=== PATIENT | female | born 1935 | race Caucasian/White ===

== ENCOUNTER 2016-08-29 05:22 | Inpatient (IN) | payer MEDICARE, BC ==
[2016-08-28 13:13] VITALS: BMI 28.5
[2016-08-29] VITALS (47 sets, daily range): BP systolic 85–158; BP diastolic 45–85; PULSE 70–80; RESP 11–20; Ht 179.1 cm; Wt 87.2 kg
[~2016-08-29] VITALS: Ht 179.1 cm; Wt 87.2 kg
[~2016-08-29 05:22] MED LIST: VANCOMYCIN 1 GM/NS 250 ML X1 BEFORE INCISION IVPB ONE
[2016-08-29] MEDS ORDERED: GABAPENTIN 300 MG CAP PO ONE (06:00)
[2016-08-29] MEDS ORDERED: traMADol 50 MG TAB PO ONE (06:00)
[2016-08-29] MEDS ORDERED: TRANEXAMIC ACID 1,000 MG in SOD CHLORIDE 0.9% 100 ML IVPB ONE (06:00)
[2016-08-29] MEDS ORDERED: BUPIVACAINE 0.5% (SDV) 30 ML, morphine SULFATE (PF) 8 MG, EPINEPHrine 0.3 MG, KETOROLAC... IRR SCH ×7 (06:00)
[2016-08-29] MEDS ORDERED: DEXAMETHASONE 1 MG TAB PO ONE (06:00)
[2016-08-29] MEDS ORDERED: CEFAZOLIN 2 GM/50 ML (PMX) 50 ML IVPB ONE (06:00)
[2016-08-29] MEDS ORDERED: BUPIVACAINE 0.5%/EPI (SDV) 30 ML INJ ONE (06:33)
[2016-08-29] MEDS ORDERED: THROMBIN 5000 UNIT VIAL ONE (06:33)
[2016-08-29] MEDS ORDERED: POLYMYXIN/BACITRACIN 1L IRRIG ONE (06:33)
[2016-08-29] MEDS ORDERED: CA CHLORIDE 10% 10 ML SYRINGE ONE (06:33)
[2016-08-29] MEDS ORDERED: VENL150T PO (06:44)
[2016-08-29] MEDS ORDERED: CALC-267 PO (06:44)
[2016-08-29] MEDS ORDERED: SIMV20TA6 PO (06:44)
[2016-08-29] MEDS ORDERED: CARB200T43 PO (06:44)
[2016-08-29] MEDS ORDERED: METF500T PO (06:44)
[2016-08-29] MEDS ORDERED: LOSA1TAB20 PO (06:44)
[2016-08-29] MEDS ORDERED: CHOL3000 PO (06:44)
[2016-08-29] MEDS ORDERED: NIFE60TA11 PO (06:44)
--- NOTE | 2016-08-29 06:49 | HPN ---
Date/Time of Note Date/Time of Note DATE: 08/29/16 TIME: 06:48 Interval H&P Admission Note Pt. seen H&P reviewed: No system changes ETHAN MISHRA MD Aug 29, 2016 06:48
[2016-08-29] MEDS ORDERED: PROPOFOL 20 ML ONE (06:53)
[2016-08-29] MEDS ORDERED: ROCURONIUM 50 MG INJ ONE (06:53)
[2016-08-29] MEDS ORDERED: DEXAMETHASONE 4 MG/ML 1 ML INJ ONE (06:54)
[2016-08-29] MEDS ORDERED: ONDANSETRON 4 MG INJ ONE (06:54)
[2016-08-29] MEDS ORDERED: MIDAZOLAM 1 MG/ML 2 ML INJ ONE (06:54)
[2016-08-29] MEDS ORDERED: NEOSTIGMINE 3 MG/3 ML SYRINGE ONE (06:54)
[2016-08-29] MEDS ORDERED: FENTAnyl 50 MCG/ML VIAL ONE (06:54)
[2016-08-29] MEDS ORDERED: GLYCOPYRROLATE 0.4 MG INJ ONE (06:54)
[2016-08-29] MEDS ORDERED: ROPIVACAINE 0.5 % 30 ML VIAL ONE (06:56)
[2016-08-29] MEDS ORDERED: HYDROmorphONE (0.2 MG/ML) 10ML SYG IV PRN ×6 (08:00→09:30)
[2016-08-29] MEDS ORDERED: LABETALOL HCL 20MG INJ IV PRN ×2 (08:00→09:30)
[2016-08-29] MEDS ORDERED: TRIMETHOBENZAMIDE 100 MG/ML VIAL IM PRN ×2 (08:00→09:30)
[2016-08-29] MEDS ORDERED: MIDAZOLAM 1 MG/ML 2 ML INJ IV PRN ×2 (08:00→09:30)
[2016-08-29] MEDS ORDERED: hydrALAzine 20 MG INJ IV PRN ×2 (08:00→09:30)
[2016-08-29] MEDS ORDERED: EPHEDrine SULFATE 50 MG/5 ML SYG IV PRN (08:00)
[2016-08-29] MEDS ORDERED: MEPERIDINE 25 MG INJ IV PRN ×2 (08:00→09:30)
[2016-08-29] MEDS ORDERED: DIPHENHYDRAMINE 50 MG INJ IV PRN ×2 (08:00→09:00)
[2016-08-29] MEDS ORDERED: ONDANSETRON 4 MG INJ IV PRN ×3 (08:00→09:30)
[2016-08-29] MEDS ORDERED: FENTAnyl 50 MCG/ML VIAL IV PRN ×6 (08:00→09:30)
[2016-08-29] MEDS ORDERED: KETOROLAC 15 MG INJ IV PRN (09:00)
[2016-08-29] MEDS ORDERED: ACETAMINOPHEN 500 MG TAB PO PRN (09:00)
[2016-08-29] MEDS ORDERED: MAGNESIUM HYDROXIDE 30ML CUP PO PRN (09:00)
[2016-08-29] MEDS ORDERED: morphine 4 MG/ML VIAL IV PRN (09:00)
[2016-08-29] MEDS ORDERED: morphine 2 MG INJ IV PRN (09:00)
[2016-08-29] MEDS ORDERED: OXYCODONE/ACETAMINOPHEN (5/325) TAB PO PRN ×2 (09:00)
[2016-08-29] MEDS ORDERED: TRANEXAMIC ACID 1,000 MG in SOD CHLORIDE 0.9% 100 ML IV ONE (09:00)
--- NOTE | 2016-08-29 09:39 | OPR ---
DATE OF OPERATION: 08/29/2016 PREOPERATIVE DIAGNOSIS: Rotator cuff tear arthropathy, left shoulder. POSTOPERATIVE DIAGNOSES 1. Secondary osteoarthritis, left shoulder. 2. Massive unrepairable rotator cuff tear, left shoulder. OPERATION PERFORMED: Left reverse total shoulder replacement. ATTENDING SURGEON: Ethan Carr MD COLLECTION SUPERVISOR: Thiago Ferro MD Music Therapy Specialist surgeon, Thiago Ferro MD, was asked to be present at my request as a result of the signi ficant surgical complexity associated with this procedure, including positioning of the extremity, m anipulation and protection of the neurovascular structures. In my opinion, the assistance offered b y a surgical instrument mechanic is insufficient and Dr. Ferro should be compensated for his time. PROCEDURE IN DETAIL: Following the administration of general endotracheal anesthesia, the patient w as placed in the beach chair position. The left upper extremity was prepped and draped in the usual sterile fashion. An extended deltopectoral incision was then undertaken, exposing the conjoined te ndon, retracting it medially. Severe adhesions in the subdeltoid space were encountered. Elevation of the soft tissues. We were then able to deliver the humeral head. Superior rotator cuff was comp letely deficient. A portion of the subscapularis was left. This was detached. The biceps was rele ased. Severe arthritic changes were noted throughout. Peripheral osteophytes were removed and a hu meral head cut was then made in the appropriate degree of version and inclination. The glenoid was then exposed. Very large peripheral osteophytes were removed. Capsulectomy complet ed. The central canal was then entered and a standard DePuy base plate was then implanted. Four pe ripheral screws were used for solid fixation. A 36 mm sphere was then applied with solid fixation. The humerus was then reamed up to the 10 mm size. A DePuy 10 mm component with a 6 mm liner was the n implanted with very solid fixation, no instability and full range of motion. The joint was irriga gina thoroughly, closed in layers. A Prineo dressing was then used as a final layer. The patient wa s then awakened and transported to recovery room in stable condition. Estimated blood loss for this procedure was 100 mL. Postoperative x-rays will be obtained in the recovery room. Dictated By: ETHAN OKEEFE/DEX Conf#: [id number] [facility]#: [id number]
--- NOTE | 2016-08-29 09:49 | RADRPT ---
PROCEDURE: XR Left Shoulder CLINICAL INDICATION: Postop TECHNIQUE: AP internal and external rotation views and a Y-view were submitted. COMPARISON: None FINDINGS: Osseous structures: There is a well seated reverse left shoulder replacement. The osseous elements a re otherwise rarefied but intact. Joint spaces: The prosthetic joint space appears unremarkable. Mild degenerative changes seen about the left AC joint. Soft tissues: Postop subcutaneous air is evident. IMPRESSION: 1. Well seated reversed left shoulder arthroplasty. 2. Postop subcutaneous air is noted. 3. Osteoporosis with mild degenerative change seen about the left AC joint. Physician Fernando Date Time Electronically viewed and signed by Physician Fernando on 08/29/2016 09:49 /
--- NOTE | 2016-08-29 12:31 | PDOCDIS ---
Discharge Instructions DIAGNOSIS Discharge Diagnosis: Shoulder arthritis CONDITION Patient Condition: Good HOME CARE INSTRUCTIONS: Diet Instructions: Regular ACTIVITY: Activity Restrictions: Slowly Increase Activity Bathing Restrictions: Shower FOLLOW UP/APPOINTMENTS Appointments Two weeks SCHOOL/WORK RELEASE May return to School/Work with: With Restrictions School/Work Release Comment: Five pound table top usage for six weeks ETHAN MISHRA MD Aug 29, 2016 12:31
[2016-08-29] MEDS ORDERED: GLUCAGON 1 MG INJ IM PRN (14:30)
[2016-08-29] MEDS ORDERED: GLUCOSE GEL 15 GRAM TUBE BUCCAL PRN (14:30)
[2016-08-29] MEDS ORDERED: DEXTROSE 50% 50 ML SYRINGE IV PRN ×2 (14:30)
[2016-08-29] MEDS ORDERED: GLUCOSE GEL 15 GRAM TUBE PO PRN ×2 (14:30)
[2016-08-29] MEDS: DEXAMETHASONE 2 MG TAB PO SCH ×3 (15:10→23:56)
[2016-08-29] MEDS: HYDROCHLOROTHIAZIDE 25 MG TAB PO SCH (17:00)
[2016-08-29] MEDS: LOSARTAN 50 MG TAB PO SCH (17:00)
[2016-08-29] MEDS: NIFEdipine (XL) 60 MG TAB PO SCH (18:01)
[2016-08-29] MEDS ORDERED: metFORMIN 500 MG TAB PO SCH (18:30)
[2016-08-29] MEDS: VANCOMYCIN 500MG/NS (PMX) 100 ML IVPB SCH (18:58)
[2016-08-29] MEDS ORDERED: carBAMAZepine (XR) 100 MG TABSR PO SCH (20:00)
[2016-08-29] MEDS ORDERED: ATORVASTATIN 10 MG TAB PO SCH (21:00)
[2016-08-29] MEDS: ZOLPIDEM 5 MG TAB PO PRN (21:22)
[2016-08-29] MEDS: SENNA/DOCUSATE NA (8.6MG/50MG) TAB PO SCH (21:22)
[2016-08-30 00:26] VITALS: BP 105/55; RESP 18
[2016-08-30] MEDS: ZOLPIDEM 5 MG TAB PO PRN (00:48)
[2016-08-30] MEDS: DEXAMETHASONE 2 MG TAB PO SCH (05:47)
[2016-08-30 06:00] VITALS: BP 157/70; PULSE 73; RESP 19
--- NOTE | 2016-08-30 06:34 | PN ---
Date/Time of Note Date/Time of Note DATE: 08/30/16 TIME: 06:33 24 hour Interval Summary Patient is doing very well status post total shoulder replacement She has minimal pain. Physical exam: Her wound is clean and dry. She is neurologically intact. There are no signs of DVT. Impression: Status post left reverse total shoulder replacement Plan: She will have physical therapy this morning to be discharged afterwards. Physical Exam Vital Signs Date Time Temp Pulse Resp B/P Pulse Ox O2 Delivery O2 Flow Rate FiO2 08/30/16 06:00 98.2 73 19 157/70 93 Room Air 08/29/16 17:05 2.0 Intake and Output 08/29/16 08/29/16 08/30/16 15:00 23:00 07:00 Intake Total 2000 ml 560 ml 1100 ml Output Total 20 ml 400 ml 850 ml Balance 1980 ml 160 ml 250 ml VTE Prophylaxis VTE Prophylaxis Intervention: anti-embolic stocking Lines/Catheters IV Catheter Type: Saline Lock Mitchell in Place: No Medications Medications Home Meds Reported Medications Losartan-Hydrochlorothiazide (Losartan-HCTZ) 100-25 Mg Tab, 1 TAB PO DAILY, TAB 08/29/16 Venlafaxine Hcl* (Venlafaxine Hcl ER*) 150 Mg Tab.er.24, 150 MG PO DAILY, TAB.SA 08/29/16 Cholecalciferol (Vitamin D3) 3,000 Unit Tablet, 2000 UNIT PO DAILY, TAB 08/29/16 Calc/D3/Mag/Zn/Ancillary Services Manager/Antwan/[place] (Calcium 600 + Vit D) 1 Each Tablet, TAB PO DAILY , TAB 08/29/16 Simvastatin (Simvastatin) 20 Mg Tablet, 20 MG PO QHS, #30 TAB 08/29/16 Nifedipine (Nifedical Xl) 60 Mg Tab.er.24, 60 MG PO DAILY, TAB 08/29/16 Metformin Hcl (Glucophage) 500 Mg Tablet, 500 MG PO WITH BREAKFAST, #30 TAB 08/29/16 Carbamazepine* (Carbamazepine* XR) 200 Mg Tab.er.12h, 150 MG PO DAILY, #60 TAB.SA 08/29/16 ETHAN MISHRA MD Aug 30, 2016 06:34
--- NOTE | 2016-08-30 06:35 | DS ---
Date/Time of Note Date/Time of Note DATE: 08/30/16 TIME: 06:34 Discharge Summary Admission/Discharge Info Admit Date/Time Aug 29, 2016 at 05:22 Discharge Date/Time August 30, 2016 following occupational therapy Final Diagnosis Left shoulder rotator cuff tear arthropathy Patient Condition: Good Procedures Left reverse total shoulder replacement Hx of Present Illness Patient was in severe pain for the last several years. Hospital Course Patient was admitted and underwent an uncomplicated total shoulder replacement. She was discharged following physical therapy in the morning. Home Meds Reported Medications Losartan-Hydrochlorothiazide (Losartan-HCTZ) 100-25 Mg Tab, 1 TAB PO DAILY, TAB 08/29/16 Venlafaxine Hcl* (Venlafaxine Hcl ER*) 150 Mg Tab.er.24, 150 MG PO DAILY, TAB.SA 08/29/16 Cholecalciferol (Vitamin D3) 3,000 Unit Tablet, 2000 UNIT PO DAILY, TAB 08/29/16 Calc/D3/Mag/Zn/Medical Donation Professional/Antwan/[place] (Calcium 600 + Vit D) 1 Each Tablet, TAB PO DAILY , TAB 08/29/16 Simvastatin (Simvastatin) 20 Mg Tablet, 20 MG PO QHS, #30 TAB 08/29/16 Nifedipine (Nifedical Xl) 60 Mg Tab.er.24, 60 MG PO DAILY, TAB 08/29/16 Metformin Hcl (Glucophage) 500 Mg Tablet, 500 MG PO WITH BREAKFAST, #30 TAB 08/29/16 Carbamazepine* (Carbamazepine* XR) 200 Mg Tab.er.12h, 150 MG PO DAILY, #60 TAB.SA 08/29/16 Follow-up Plan 2 weeks ETHAN MISHRA MD Aug 30, 2016 06:35
[2016-08-30] MEDS: VANCOMYCIN 500MG/NS (PMX) 100 ML IVPB SCH (06:37)
[2016-08-30] MEDS ORDERED: metFORMIN 500 MG TAB PO SCH (07:50)
[2016-08-30 08:28] VITALS: BP 138/73; RESP 18
[2016-08-30] MEDS: LOSARTAN 50 MG TAB PO SCH (08:40)
[2016-08-30] MEDS: SENNA/DOCUSATE NA (8.6MG/50MG) TAB PO SCH (08:41)
[2016-08-30] MEDS: HYDROCHLOROTHIAZIDE 25 MG TAB PO SCH (08:41)
[2016-08-30] MEDS: NIFEdipine (XL) 60 MG TAB PO SCH (08:41)
[2016-08-30] MEDS ORDERED: ASPIRIN 81 MG TAB PO SCH (09:00)
[2016-08-30] MEDS ORDERED: VENLAFAXINE (XR) 75 MG CAP PO SCH (09:00)
[2016-08-30] MEDS ORDERED: carBAMAZepine (XR) 100 MG TABSR PO SCH (20:00)
== END 2016-08-30 11:50 | disposition home or self-care (01) | DRG 483 ==
LOC: REC 05:22 → MS1 14:15
PROVIDERS: ADMIT Orthopaedic Surgery; ATTEND Orthopaedic Surgery
PROC: 0RRK00Z Replacement of Left Shoulder Joint with Reverse Ball and Socket Synthetic Substitute, Open Approach (ICD-10-PCS; principal; 2016-08-29 07:00)
DX: S46.012A Strain of muscle(s) and tendon(s) of the rotator cuff of left shoulder, initial encounter (principal); Z91.81 History of falling
CPT/HCPCS: 73030; 86999; 88304; 88311; 97167; Z7610; C1776; J0171; J0735; J1100; J1885; J2250; J2270; J2274; J2405; J2710; J2795; J3010; J3370